=== PATIENT | female | born 1970 | race Caucasian/White ===

== ENCOUNTER 2021-08-12 09:18 | Emergency (ER) | payer BC ==
[2021-08-12] MEDS ORDERED: Sodium Chloride 0.9% 10 ML Syringe FLUSH PRN (09:23)
--- NOTE | 2021-08-12 09:38 | EDM.PDOC ---
ED HPI GENERAL MEDICAL PROBLEM - General Chief Complaint: Cardiovascular Problem Stated Complaint: HEART ISSUES Time Seen by Provider: 08/12/21 09:22 Source of Information: Reports: Patient, Family History Limitations: Reports: No Limitations - History of Present Illness INITIAL COMMENTS - FREE TEXT/NARRATIVE: Dominique is a 50-year-old female presenting to the ED for evaluation of racing heart, diaphoresis, and lightheadedness. The patient was in her usual state of health until about 7:45 AM this morning when she started to develop a racing heart. She did not actually check her pulse but felt that it was beating very fast and was accompanied by diaphoresis, chills, and the onset of lightheadedness. She did not have any nausea or difficulty breathing. She normally tries to self treat which is coming down but this did not work and her symptoms lasted approximately 15 to 20 minutes. The dizziness/lightheadedness has persisted since then making her feel more shaky. The patient reports that she has had several of these episodes over the last couple of days but none of the lasted this long. She does report she used to get these episodes previously while playing softball. She denies any family history of thyroid problems or personal history of hypertension or thyroid problems. He denies any chest pain at this time. She does feel the lightheadedness is positional and worsens with change in position. - Related Data Allergies Allergy/AdvReac Type Severity Reaction Status Date / Time Sulfa (Sulfonamide Allergy Rash Verified 08/12/21 09:31 Antibiotics) Home Meds: Home Meds Total Restore 1 tab PO DAILY 02/17/21 [History] ED ROS GENERAL - Review of Systems Review Of Systems: See Below Constitutional: Reports: Chills, Diaphoresis HEENT: Reports: No Symptoms Respiratory: Reports: No Symptoms Cardiovascular: Reports: Lightheadedness, Palpitations (Racing heart rate for about 15 minutes this morning) Endocrine: Reports: No Symptoms GI/Abdominal: Reports: No Symptoms : Reports: No Symptoms Musculoskeletal: Reports: No Symptoms Skin: Reports: No Symptoms Neurological: Reports: Dizziness Psychiatric: Reports: No Symptoms Hematologic/Lymphatic: Reports: No Symptoms Immunologic: Reports: No Symptoms ED EXAM, GENERAL - Physical Exam Exam: See Below Exam Limited By: No Limitations General Appearance: Alert, No Apparent Distress, Anxious (Mild) Eye Exam: Bilateral Eye: EOMI, PERRL Throat/Mouth: Normal Voice, No Airway Compromise Head: Atraumatic, Normocephalic Neck: Normal Inspection, Supple, Non-Tender, Full Range of Motion. No: Lymphadenopathy (R), Lymphadenopathy (L) Respiratory/Chest: No Respiratory Distress, Lungs Clear, Normal Breath Sounds Cardiovascular: Normal Peripheral Pulses, Regular Rate, Rhythm, No Murmur Peripheral Pulses: 2+: Radial (L), Radial (R), Posterior Tibial (L), Posterior Tibial (R) GI/Abdominal: Normal Bowel Sounds, Soft, Non-Tender Extremities: Normal Inspection, Normal Range of Motion, No Pedal Edema Neurological: Alert, Oriented, Normal Cognition, No Motor/Sensory Deficits Psychiatric: Normal Affect, Normal Mood Skin Exam: Warm, Dry, Intact, Normal Color. No: Diaphoretic, Pallor #1 Interpretation EKG Date: 08/12/21 Time: 09:22 Rhythm: NSR Rate (Beats/Min): 80 Mastic: LAD-Left Mastic Deviation P-Wave: Present QRS: Normal ST-T: Normal QT: Normal Comparison: NA - No Prior EKG Course - Vital Signs Last Recorded V/S: Last Vital Signs Temp 36.3 C 08/12/21 09:25 Pulse 88 08/12/21 09:25 Resp 20 08/12/21 09:25 BP 135/72 08/12/21 09:25 Pulse Ox 100 08/12/21 09:25 - Orders/Labs/Meds Orders: Active Orders 24 hr Category Date Time Status Chest 1V Frontal [CR] Stat Exams 08/12/21 09:22 Taken Sodium Chloride 0.9% [Saline Flush] Med 08/12/21 09:23 Active 10 ml FLUSH ASDIRECTED PRN Isolation [COMM] Stat Oth 08/12/21 09:23 Ordered Saline Lock Insert [OM.PC] Routine Oth 08/12/21 09:23 Ordered EKG 12 Lead [EK] Routine Ther 08/12/21 09:22 Ordered Medication Orders Sodium Chloride (Sodium Chloride 0.9% 10 Ml Syringe) 10 ml FLUSH ASDIRECTED PRN PRN Reason: Keep Vein Open Last Admin: 08/12/21 10:23 Dose: 10 ml Documented by: PREILOR Labs: Laboratory Tests 08/12/21 08/12/21 08/12/21 Range/Units 09:41 09:42 09:42 WBC 7.4 (4.5-11.0) K/uL RBC 5.01 (3.30-5.50) M/uL Hgb 10.7 L (12.0-15.0) g/dL Hct 34.7 L (36.0-48.0) % MCV 69 L (80-98) fL MCH 21 L (27-31) pg MCHC 31 L (32-36) % Plt Count 413 H (150-400) K/uL Neut % (Auto) 59.8 (36-66) % Lymph % (Auto) 29.2 (24-44) % [place] % (Auto) 9.2 H (2-6) % Eos % (Auto) 1.1 L (2-4) % Baso % (Auto) 0.7 (0-1) % D-Dimer, Quantitative 338.14 (0.0-500.0) ng/mL Sodium (140-148) mmol/L Potassium (3.6-5.2) mmol/L Chloride (100-108) mmol/L Carbon Dioxide (21-32) mmol/L Anion Gap (5.0-14.0) mmol/L BUN (7-18) mg/dL Creatinine (0.6-1.0) mg/dL Est Cr Clr Drug Dosing mL/min Estimated GFR (MDRD) (>60) Glucose (74-106) mg/dL Calcium (8.5-10.1) mg/dL Total Bilirubin (0.2-1.0) mg/dL AST (15-37) U/L ALT (12-78) U/L Alkaline Phosphatase (46-116) U/L Troponin I (0.000-0.056) ng/mL C-Reactive Protein (0.0-0.3) mg/dL Total Protein (6.4-8.2) g/dL Albumin (3.4-5.0) g/dL Globulin (2.3-3.5) g/dL Albumin/Globulin Ratio (1.2-2.2) TSH, Ultra Sensitive (0.358-3.740) uIU/mL Influenza Type A RNA Negative (NEGATIVE) RSV RNA (INAAT) Negative (NEGATIVE) Influenza Type B RNA Negative (NEGATIVE) SARS-CoV-2 RNA (SIGIFREDO) Negative (NEGATIVE) 11/20/21 11/20/21 Range/Units 09:42 09:42 WBC (4.5-11.0) K/uL RBC (3.30-5.50) M/uL Hgb (12.0-15.0) g/dL Hct (36.0-48.0) % MCV (80-98) fL MCH (27-31) pg MCHC (32-36) % Plt Count (150-400) K/uL Neut % (Auto) (36-66) % Lymph % (Auto) (24-44) % [place] % (Auto) (2-6) % Eos % (Auto) (2-4) % Baso % (Auto) (0-1) % D-Dimer, Quantitative (0.0-500.0) ng/mL Sodium 143 (140-148) mmol/L Potassium 4.1 (3.6-5.2) mmol/L Chloride 107 (100-108) mmol/L Carbon Dioxide 25 (21-32) mmol/L Anion Gap 11.2 (5.0-14.0) mmol/L BUN 12 (7-18) mg/dL Creatinine 0.9 (0.6-1.0) mg/dL Est Cr Clr Drug Dosing 88.02 mL/min Estimated GFR (MDRD) > 60 (>60) Glucose 82 (74-106) mg/dL Calcium 8.8 (8.5-10.1) mg/dL Total Bilirubin 1.1 H (0.2-1.0) mg/dL AST 17 (15-37) U/L ALT 32 (12-78) U/L Alkaline Phosphatase 72 (46-116) U/L Troponin I < 0.017 (0.000-0.056) ng/mL C-Reactive Protein < 0.05 (0.0-0.3) mg/dL Total Protein 7.2 (6.4-8.2) g/dL Albumin 3.8 (3.4-5.0) g/dL Globulin 3.4 (2.3-3.5) g/dL Albumin/Globulin Ratio 1.1 L (1.2-2.2) TSH, Ultra Sensitive 0.965 (0.358-3.740) uIU/mL Influenza Type A RNA (NEGATIVE) RSV RNA (INAAT) (NEGATIVE) Influenza Type B RNA (NEGATIVE) SARS-CoV-2 RNA (SIGIFREDO) (NEGATIVE) Meds: Medications Generic Name Dose Route Start Last Admin Trade Name Tali PRN Reason Stop Dose Admin Sodium Chloride 10 ml 08/12/21 09:23 08/12/21 10:23 Sodium Chloride 0.9% 10 Ml Syringe FLUSH 10 ml ASDIRECTED PRN Administration Keep Vein Open - Radiology Interpretation Free Text/Narrative:: The one-view portable chest x-ray showing no acute cardiopulmonary abnormalities. There is no adenopathy. - Re-Assessments/Exams Free Text/Narrative Re-Assessment/Exam: 08/12/21 10:25 I reviewed the patient's labs showing a normal CBC, comprehensive metabolic panel, D-dimer, troponin I, TSH and CRP. Her Covid, RSV, influenza test are all negative. Her chest x-ray is unremarkable for any significant findings. 08/12/21 10:31 orthostatic vitals show a significant change in pulse rate from lying to sitting to standing but no change in blood pressure. This is consistent with orthostatic hypotension likely due to the patient being slightly dehydrated. The remainder of her work-up is unremarkable so I do think she is suitable for discharge home. Indications return to the ED were discussed. Departure - Departure Time of Disposition: 10:31 Disposition: Home, Self-Care 01 Clinical Impression: Mild dehydration, PSVT (paroxysmal supraventricular tachycardia), Orthostatic dizziness Instructions: Dehydration, Adult, [id number], Supraventricular Tachycardia, Adult, [id number], Dizziness Referrals: PCP,None [Primary Care Provider] - Forms: ED Department Discharge Care Plan Goals: Your work-up today shows shown that your thyroid function is normal, your heart work-up was unremarkable but you are significantly orthostatic having a change in your blood pressure and pulse with change in position. This is likely due to some mild dehydration. I would encourage pushing fluids over the next couple of days to rehydrate. Sepsis Event Note (ED) - Focused Exam Vital Signs: Vital Signs Temp Pulse Resp BP Pulse Ox 08/12/21 09:25 36.3 C 88 20 135/72 100 - Problem List & Annotations (1) Mild dehydration SNOMED Code(s): 2542685379944 Code(s): E86.0 - DEHYDRATION Status: Acute Priority: High Current Visit: Yes (2) Orthostatic dizziness SNOMED Code(s): 466380505 Code(s): R42 - DIZZINESS AND GIDDINESS Status: Acute Priority: High Current Visit: Yes (3) PSVT (paroxysmal supraventricular tachycardia) SNOMED Code(s): 83181692 Code(s): I47.1 - SUPRAVENTRICULAR TACHYCARDIA Status: Acute Priority: High Current Visit: Yes - Problem List Review Problem List Initiated/Reviewed/Updated: Yes - My Orders Last 24 Hours: My Active Orders 08/12/21 09:22 Chest 1V Frontal [CR] Stat EKG 12 Lead [EK] Routine 08/12/21 09:23 Sodium Chloride 0.9% [Saline Flush] 10 ml FLUSH ASDIRECTED PRN Isolation [COMM] Stat Saline Lock Insert [OM.PC] Routine - Assessment/Plan Last 24 Hours: My Active Orders 08/12/21 09:22 Chest 1V Frontal [CR] Stat EKG 12 Lead [EK] Routine 08/12/21 09:23 Sodium Chloride 0.9% [Saline Flush] 10 ml FLUSH ASDIRECTED PRN Isolation [COMM] Stat Saline Lock Insert [OM.PC] Routine
[2021-08-12 10:19] LABS: CORONAVIRUS COVID-19 NAA NEGATIVE (NEGATIVE)
--- NOTE | 2021-08-14 09:11 | CR ---
CHEST: Portable 08/12/2021 at 10:15 AM CLINICAL HISTORY:Chest pain COMPARISON:None FINDINGS: The heart size, pulmonary vascularity and hilar structures are normal. No infiltrate effusion or pneumothorax is seen. IMPRESSION: No acute cardiopulmonary process.
== END 2021-08-12 10:39 | disposition home or self-care (01) ==
LOC: JP.ED 09:18
DX: E86.0 Dehydration (principal); I47.1 Supraventricular tachycardia; Z88.2 Allergy status to sulfonamides; Z20.822 Contact with and (suspected) exposure to COVID-19
CPT/HCPCS: 0241U; 36415; 71045; 80053; 84443; 84484; 85025; 85379; 86140; 93005; 99285